=== PATIENT | female | born 1955 | race African-American/Black ===

== ENCOUNTER 2021-02-12 17:08 | Emergency (ER) | payer OTHER ==
[~2021-02-12] VITALS: Ht 162.6 cm; Wt 102.5 kg
[2021-02-12] MEDS ORDERED: diphenhdrAMINE HCL 25 MG CAP PO ONE (19:15)
[2021-02-12] MEDS ORDERED: CEPH-322 PO (19:19)
[2021-02-12] MEDS ORDERED: DIPH25CA66 PO (19:19)
[2021-02-12 20:18] VITALS: BP 127/65
== END 2021-02-12 20:22 | disposition home or self-care (01) ==
LOC: ER 17:08
DX: T78.40XA Allergy, unspecified, initial encounter (principal); Z79.899 Other long term (current) drug therapy; Z88.0 Allergy status to penicillin; Y92.89 Other specified places as the place of occurrence of the external cause